=== PATIENT | male | born 1945 | race Caucasian/White ===

== ENCOUNTER → 2023-04-15 | Outpatient (CLI) | payer MEDICARE, BC, SELFPAY ==
[2023-04-15 13:39] LABS: Prothrombin Time (Protime)PT. 13.4 SECONDS (11.7-14.9)
[2023-04-15 13:40] LABS: Partial Thromboplast Time 28.4 Seconds (24.1-36.2)
== END | disposition home or self-care (01) ==
PROVIDERS: PCP Family Medicine; Referring Provider Internal Medicine Critical Care Medicine; Visit Provider Internal Medicine Critical Care Medicine
DX: R91.8 Other nonspecific abnormal finding of lung field (principal)
CPT/HCPCS: 36415; 85610; 85730

== ENCOUNTER → 2023-04-18 | Outpatient (CLI) | payer MEDICARE, BC, SELFPAY ==
--- NOTE | 2023-04-19 05:56 | PFTCOMP_ITS ---
COMPLETE PULMONARY FUNCTION TEST INTERPRETATION Brief HPI: Patient is an 78-year-old male, currently under the care of myself, who presents to [facility] for complete pulmonary function tests secondary to diagnosis of lung mass. Respiratory therapist reports good effort and reproducible results. Interpretation: Forced expiration spirometry shows a mild large airways obstructive ventilatory defect with an FEV1 of 71% predicted. There is a significant bronchodilator response in FVC and FEV1 by strict ATS criteria. Spirograms are of good quality and plateau slowly, indicating slowly emptying areas of the lungs. The respiratory flow volume loop shows flattening of the expiratory limb suggestive of a partial intrathoracic airway obstruction. Lung volumes by body plethysmography show decreased total lung capacity at 3.67 L, 65% predicted. All other lung volumes are reduced symmetrically. Diffusion capacity by carbon monoxide is normal at 94% predicted. The airway resistance is elevated. No previous pulmonary function tests were available for review. Impression: Partially reversible mild mixed ventilatory defect with relatively preserved diffusion capacity and some suggestion of a partial intrathoracic airway obstruction
== END | disposition home or self-care (01) ==
LOC: PSN 09:45
PROVIDERS: PCP Family Medicine; Referring Provider Internal Medicine Critical Care Medicine; Visit Provider Internal Medicine Critical Care Medicine
DX: R91.8 Other nonspecific abnormal finding of lung field (principal)
CPT/HCPCS: 94060; 94726; 94729

== ENCOUNTER 2023-04-19 11:29 | Day surgery (SDC) | payer MEDICARE, BC, SELFPAY ==
[2023-04-19] VITALS (12 sets, daily range): BP systolic 100–138; BP diastolic 46–97; PULSE 84–91; RESP 16–18; TEMP 36.9–37.2; O2SAT 88–98; BMI 25.4
--- NOTE | 2023-04-19 | IMM_PTH ---
PATIENT: GLENYS PORTILLO LOC: EN U#:[id number] AGE/SX: 78/M ROOM: RE04/19/[address]: Dr. Cristian Duenas MD : 1945 BED: DIS: 04/19/2023 SPEC #: [id number] RECD: 04/24/23 13:25 STATUS: TIMO REQ #: [id number] PARISH: 04/19/23 00:[address]: Cristian Duenas DEPT: IMMUNOHISTOCHEMISTRY RECD BY: Chloe Long ENTERED: 04/24/23 13:26 SP TYPE: IMMUNO OTHR DR: Dr. Daniel Orr MD Tissues: Trachea, NOS Procedures: BCL-2 (add) BCL-6 (add) CD10 (add) CD20 (add) CD23 (add) CD3 (add) CD43 (add) CD45 (add) CD5 (add) CD79A (add) CK5-6 (add) CK7 (add) CYCLIN (add) TTF1 (add) MUM1 (add) C-MYC (add) Pankeratin (initial) PHYSICIAN & [address] [address] SPECIMEN INFORMATION: Tissue Source: Trachea mass Clinical Info: Trachea mass Specimen Number: [id number] CPT code: 09201, 79591 x16 METHODOLOGY: Deparaffinized sections of prefer/formalin-fixed tissue or PAP/DQ stained slides are incubated with monoclonal/polyclonal antibodies/oligonucleotide probes. Localization is made via biotin free immunoperoxidase method. Appropriate controls are performed and reacted as expected. Results on target cell population are indicated in the following table: RESULTS: ANTIBODY / CLONE RESULT AE1-3 (AE1/AE3/PCK26) negative CK7 (OV-TL12/30) negative TTF-1 (8G7G3/1) negative CK5-6 (D5 & 1684) negative CD45 (RP2/18) positive CD3 (PS1) negative CD5 (SP10) negative CD20 (L26) negative CD43 (L60) negative CD79a (11E3) negative CD10 (56C6) negative CD23 (1B12) negative BCL-2 (bcl-2/100/D5) negative BCL-6 (JM685U/A8) negative Cyclin D1/BCL-1 (SP4) negative MUM1 (MRQ-43) negative C-MYC (Y69) negative These tests were developed and their performance characteristics determined by [facility]. They may not have been cleared or approved by the U.S. Food and Drug Administration. The FDA has determined that such clearance or approval is not necessary. The above immunohistochemical/dualISH markers are ordered and reviewed by the Pathologist. INTERPRETATION: Trachea, biopsy: Negative for malignancy, lymphoma or plasma cell neoplasm. See comment. SJ:michelle 05/03/2023 The specimen is sent to [facility] for expert opinion, reviewed by Dr. Dena Wang and the above diagnosis is rendered. The complete report is viewable in the patient's EMR. Case has been reviewed in consultation with Dr. Crocker who concurs with the above diagnosis. IDC:AM
--- NOTE | 2023-04-19 | FLU_PTH ---
PATIENT: GLENYS PORTILLO LOC: EN U#:[id number] AGE/SX: 78/M ROOM: RE04/19/[address]: Dr. Cristian Duenas MD : 1945 BED: DIS: 04/19/2023 SPEC #: [id number] RECD: 04/19/23 13:47 STATUS: TIMO GOYAL #: [id number] PARISH: 04/19/23 00:[address]: Cristian Duenas DEPT: CYTOLOGY RECD BY: Suzan Hill ENTERED: 04/23/23 08:17 SP TYPE: Fluid OTHR DR: Dr. Daniel Orr MD Tissues: Bronchus, NOS Procedures: Special Stain Group II Surgery Specimen Level IV Cytospin Fluid HEADER OPERATION: Bronchoscopy PRE-OP DIAGNOSIS: Mass TISSUE SUBMITTED: Trachea washings DIAGNOSIS CYTOLOGY Tracheal washings (cytospin and cell block): Negative for malignant cells. See comment. AM:michelle 04/24/2023 COMMENT The specimen contains mucoid material, acute inflammatory cells, bacterial colonies and rare benign appearing epithelial cells. Clinical correlation is suggested. CYTOLOGY STUDY Slides are reviewed. CYTOLOGY GROSS Received is 15 ml of red cloudy mucoidy fluid labeled with the patient's name and and designated per the requisition as trachea washings. Submitted for cytology preparation including cell block. / rg 04/23/2023 TC:5 CPT: 06156, 04494
--- NOTE | 2023-04-19 | LUNG_PTH ---
PATIENT: GLENYS PORTILLO LOC: EN U#:[id number] AGE/SX: 78/M ROOM: RE04/19/[address]: Dr. Cristian Duenas MD : 1945 BED: DIS: 04/19/2023 SPEC #: [id number] RECD: 04/19/23 13:48 STATUS: TIMO GOYAL #: [id number] PARISH: 04/19/23 00:[address]: Cristian Duenas DEPT: SURGICAL PATHOLOGY RECD BY: Suzan Hill ENTERED: 04/23/23 08:20 SP TYPE: LUNG BX OTHR DR: Dr. Daniel Orr MD Tissues: Lung, NOS Procedures: [facility] Consultation (on slides) Surgery Specimen Level IV HEADER OPERATION: Bronchoscopy PRE-OP DIAGNOSIS: Mass TISSUE SUBMITTED: Trachea MICROSCOPIC DIAGNOSIS Trachea, biopsy: Minute fragments of bronchial mucosa with ulceration, necrosis and granulation tissue. No evidence of lymphoma or plasma cell neoplasm. Negative for tumor. Negative special stains for fungal organisms (GM)S and acid fast bacilli (AFB). See comment. PHYLLIS:michelle 05/03/2023 COMMENT The specimen is sent to [facility] for expert opinion, reviewed by Dr. Dena Wang and the above diagnosis is rendered. Immunohistochemistry ([id number]) and additional stains performed at [facility] support the above diagnosis. The complete report is viewable in the patient's EMR. Correlation with clinical findings and appropriate follow up are necessary. Please correlation with additional cytology specimen [id number]. Case has been reviewed in consultation with Dr. Crocker who concurs with the above diagnosis. IDC:AM MICROSCOPIC DESCRIPTION Slides are reviewed. GROSS DESCRIPTION Received in fixative is one container labeled with the patient's name and designated trachea biopsy. The specimen consists of multiple irregular fragments of light akhtar soft tissue that in aggregate measure 2.0 x 0.5 x 0.1 cm. The specimen is totally submitted in one cassette. / PHYLLIS:michelle 04/23/2023 TC:2 [facility]: [id number]
--- NOTE | 2023-04-19 12:06 | PCM.HP.BLA ---
History and Physical Date of Admission: 04/19/23 Patient seen and examined just prior to the procedure. Patient is accompanied by his and daughter. All questions were answered. There has been no significant change from outpatient visit listed below. Of note, patient did have a pulmonary function test completed on 04/18/2023 showing significant improvement following bronchodilators with a 27% improvement in FEV1 and a 43% improvement in FVC. Patient is agreeable to moving forward with the procedure. Assessment and Plan Assessment and Plan (1) Lung mass: ?Status:?Acute ? ? ? Orders: Orders Bronchoscopy Today R91.8 - Other nonspecific abnormal finding of lung field ? Prothrombin Time w/INR Today R91.8 - Other nonspecific abnormal finding of lung field ? Pulmonary Function Test (Comp) Today R91.8 - Other nonspecific abnormal finding of lung field ? Partial Thromboplast Time Today R91.8 - Other nonspecific abnormal finding of lung field ? Plan Extensive discussion with the patient about the possible implications about the lung mass noted on CT scan of the chest.? Patient does have a lesion on the top of his head that is somewhat concerning for possible melanoma.? Patient is also had a neurogenic bladder.? Patient does have a smoking history and advanced age as risk factors for lung cancer.? Size and characterization of the lung mass is difficult given its proximal location.? After review the risks, benefits and alternatives, patient would like to proceed with an EBUS procedure.? We will obtain a pulmonary function test for quantification clarification of lung function.? Did discuss the possibility of evaluation by dermatology preemptively, but patient will discuss this.? Patient does have a cystoscopy scheduled for tomorrow and was told that this could be continued as this should not interfere with the work-up of the lung mass.? No platelet count is necessary as this was recently done at an outside institution Obtain coagulation studies.? Obtain complete PFT and EBUS procedure Plan Details Additional Comments: 70 minutes was spent reviewing documentation, performing exam, discussing options and coordinating EBUS procedure. Follow Up: ? ? 2 Weeks (CSM) HPI Lung Nodule Details: Patient is an 78-year-old male who presents with his from [place] emergency department secondary to an abnormal CT scan.? Patient had reported having a bronchitis in January.? Patient was placed on a Z-James with no improvement and continued to have some cough with hoarseness.? Patient states that in March he had a chest x-ray and subsequently was asked to have a CT scan of the chest.? This showed a proximal mass obstructing the right upper lobe.? Patient presents for recommendations. Patient does report a [id number]-[id number] smoking history.? Patient also has a history of a neurogenic bladder and has been having recurring UTIs over the last 1 to 2 years.? Patient states that he is planning on having a cystoscopy in the next 1 to 2 days.? Patient does not report any history of prostate cancer.? Patient does not follow with a driver license reviewing officer routinely, but does state that he has had colonoscopies and screening as age-appropriate.? Patient does not have low-dose CT scans.? Patient does state that he has had a raspy voice since his initial bronchitis in early January.? Patient does not report any aspiration or choking events. Patient states that he has worked in [employer] in [employer].? Patient denies any exposure to asbestos or TB.? 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 Patient has used the as needed albuterol inhaler intermittently with mild improvement. Review of systems otherwise negative from a constitutional, HEENT, respiratory, cardiovascular, GI, genitourinary, musculoskeletal, skin, neurologic, psychiatric and hematologic system unless stated above. Documentation reviewed 25 pages of documentation were reviewed prior to the office visit.? Patient does not have any previous pulmonary function tests available.? Patient has been treated with azithromycin and Augmentin per the documentation.? Patient did have laboratory results showing a platelet count of 298 completed on 04/04/2023.? Patient did not have a significant leukocytosis at that time.? Patient's creatinine was 1.15.? All of these records have been scanned into the medical chart. Imaging personally reviewed Chest x-ray and CT scan of the chest was personally reviewed from 04/04/2023 using disc provided by the patient.? Patient has a right hilar mass measuring approximately 4.4 cm with obstruction of the right upper lobe with some right mainstem involvement.? There does appear to be some postobstructive atelectasis.? Mediastinal evaluation does show a slightly enlarged 4R lymph node and significant 7 station lymphadenopathy.? Evaluation of 10 R was difficult on the selected study. Intake Vital Signs ? 04/15/2311:05 Height 5 ft 7 in Weight: 74.389 kg BMI 25.7 BP 129/76 H Blood Pressure Location Lt brachial Position Sitting Respiration 18 Pulse 99 Pulse Source Monitor Temp 36.4 C L Temperature Source Temporal Artery Pulse Oximetry (%) 96 Oxygen Delivery Method room air Intake Visit Reasons:?Lung Nodule Accompanied by: Is patient in pain?: No Allergies ibuprofen [From Motrin] Allergy (Severe, Verified 04/15/23 11:06) Anaphylaxis Medications albuterol sulfate 90 mcg/actuation aerosol inhaler 2 puff inhalation Q6H PRN 04/12/23 [History Confirmed 04/15/23] aspirin 81 mg tablet,delayed release 81 mg PO DAILY 04/12/23 [History Confirmed 04/15/23] gabapentin 300 mg capsule 300 mg PO QHS 04/12/23 [History Confirmed 04/15/23] levothyroxine 150 mcg tablet (Synthroid) 150 mcg PO DAILY 04/12/23 [History Confirmed 04/15/23] lisinopril 10 mg tablet 10 mg PO DAILY 04/12/23 [History Confirmed 04/15/23] potassium gluconate 595 mg (99 mg) tablet 595 mg PO DAILY 04/12/23 [History Confirmed 04/15/23] rosuvastatin 5 mg tablet (Crestor) 2.5 mg PO DAILY 04/12/23 [History Confirmed 04/15/23] verapamil 180 mg 24 hr capsule,extended release 180 mg PO DAILY 04/12/23 [History Confirmed 04/15/23] PFSH Medical History?(Updated 04/15/23 @ 12:[address] Cristian Duenas MD) H/O solitary pulmonary nodule Family History?(Updated 04/15/23 @ 11:11 by Kelli Woodson) Brother Diabetes Heart disease CancerSister Diabetes Breast cancer Social History?(Updated 04/15/23 @ 11:12 by Kelli Woodson) Smoking Status:? Former smoker Tobacco: How many years used:? 20 smoking status stop date:? 11/25/99 Exam Const Constitutional: Positive conversant, cooperative, in no acute respiratory distress, healthy appearing, well developed, well nourished and good hygiene Appears younger than stated age Head Head: Yes normocephalic, Yes atraumatic and No cyanosis of lips/distal nose Eyes Eye: Positive clear conjunctiva; Negative nystagmus, scleral abnormality or cataract present Ears Ear: Positive hearing normal and external ears normal; Negative hard of hearing Nose Nose: Yes external nose normal, No nasal polyp and Yes septum normal Mouth Mouth: Positive oral mucosae normal, no lesions and good dentition; Negative oral thrush present or post nasal drip Mallampati Score: II: Mallampati Score Neck Neck: Positive normal visual inspection, full ROM and trachea midline; Negative lymphadenopathy or JVD Chest Wall Chest: Positive normal inspection of the chest and symmetric chest movement; Negative crepitus or tenderness Resp lung sounds: Positive clear to auscultation, good air exchange, rhonchi (Notable on right, but resolved with coughing) and normal expiratory time; Negative wheezes, wheeze present on forced exhalation, rales, dullness or use of accessory muscles Cardio Cardiac: Positive regular rate, regular rhythm, S1 normal and S2 normal; Negative murmur, rub or gallop GI GI: Positive normal to inspection and normal bowel sounds; Negative distended, ascites or epigastric tenderness Musc Musculoskeletal: Positive steady gait; Negative using an assistive device for ambulation, kyphosis or scoliosis Skin Pulmonary Skin Exam: Positive intact; Negative rash, ulcers or erythema Highly irregular patch approximately 4 cm noted on the left crown of the head.? Irregular pigmentation and borders noted.? No scaling noted. Pulses Pulse: Yes radial pulses present Extremities Extremities: Yes capillary refill normal, No clubbing, No cyanosis and No edema Neuro Neurologic: Yes no focal neuro deficits, Yes conversant, Yes cooperative, Yes normal cognition, Yes normal coordination, Yes normal concentration and Yes understands questions Lymph Lymphatic: No lymphadenopathy Psych Appearance: Positive grossly normal Mental Status: Positive mental status grossly normal Mood: Positive congruent mood Affect: Positive normal affect Assessment & Plan Assessment/Plan (1) Lung mass: PLAN: Plan to move forward with bronchoscopy and EBUS with transbronchial needle biopsy, endobronchial biopsy and Cytobrush evaluation anticipated.
[2023-04-19] MEDS: Ipratropium/Albuterol Sulfate 3 ML AMPUL.NEB INHALATION ×2 (12:16→14:21)
[2023-04-19] MEDS: Lactated Ringers 1,000 ML 15 ML IV ×2 (12:17→13:00)
[2023-04-19] MEDS: Epinephrine (1 mg/ml) 1 MG/ML VIAL (12:55)
[2023-04-19] MEDS: 0.9% Normal Saline (Pres. free 10 ML Vial (12:55)
--- NOTE | 2023-04-19 13:18 | OP.BRONCH_ITS ---
Patient Name: Baltazar Gilmore Procedure Date: 04/19/2023 11:52 AM Date of : 1945 Age: 78 Procedure: Bronchoscopy Indications: Right upper lobe mass Providers: Cristian Duenas MD Medicines: See the Anesthesia note for documentation of the administered medications Complications: No immediate complications. Unable to perform EBUS secondary to endobronchial masses. Procedure: Pre-Anesthesia Assessment: - Prior to the procedure, a History and Physical was performed, and patient medications and allergies were reviewed. The patient's tolerance of previous anesthesia was also reviewed. The risks and benefits of the procedure and the sedation options and risks were discussed with the patient. All questions were answered, and informed consent was obtained. Prior Anticoagulants: The patient has taken no previous anticoagulant or antiplatelet agents. ASA Grade Assessment: III - A patient with severe systemic disease. After reviewing the risks and benefits, the patient was deemed in satisfactory condition to undergo the procedure. After I obtained informed consent, the scope was passed under direct vision. Throughout the procedure, the patient's blood pressure, pulse, and oxygen saturations were monitored continuously. The bronchoscope was introduced through the mouth, via laryngeal mask airway and advanced to the karolina. The procedure was accomplished without difficulty. The patient tolerated the procedure well. The patient tolerated the procedure well. The procedure was accomplished with ease. Findings: Trachea/Karolina Abnormalities: A partially obstructing (about 70% obstructed) mass was found 2 cm from the bifurcation (karolina) in the lower trachea. The mass was medium-sized and fungating, polypoid and smooth. The lesion was successfully traversed, but unable to progress down the bronchial tree secondary to fungating masses. 2 cc of 1-10,000 epinephrine were placed topically prior to any biopsies. Mucopurulent, white secretions were found in the lower trachea. They were partially obstructing the airway. Endobronchial biopsies of a mass were performed in the trachea using a jumbo forceps and sent for histopathology examination. 12 samples were obtained. Washings were obtained in the trachea and sent for routine cytology. The return was bloody. Multiple specimens were obtained and pooled into one specimen, which was sent for analysis. Impression: - Right upper lobe mass - A fungating, polypoid and smooth mass was found in the lower trachea. 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 - Mucopurulent, white secretions were found in the lower trachea. - An endobronchial biopsy was performed. - Washings were obtained. Recommendation: - The patient will be observed post-procedure, until all discharge criteria are met. - Await biopsy and washing results. - Follow up in clinic in one week. Procedure Code(s): --- Professional --- 88366, Bronchoscopy, rigid or flexible, including fluoroscopic guidance, when performed; with bronchial or endobronchial biopsy(s), single or multiple sites Diagnosis Code(s): --- Professional --- R91.8, Other nonspecific abnormal finding of lung field J98.9, Respiratory disorder, unspecified R09.89, Other specified symptoms and signs involving the circulatory and respiratory systems CPT copyright 2017 [employer]. All rights reserved. The codes documented in this report are preliminary and upon executive administrative assistant review may be revised to meet current compliance requirements. MD Cristian Mullen MD 04/19/2023 1:18:25 PM This report has been signed electronically. Number of Addenda: 0 Note Initiated On: 04/19/2023 11:52 AM
[2023-04-19] MEDS: Lidocaine Jelly 2% 20 ML Syringe (URO-JET) 1 APPLIC (13:27)
[2023-04-19 13:42] LABS: Bedside Glucose 103 mg/dL (74-106)
[2023-04-19 13:49] LABS: Bedside Glucose 101 mg/dL (74-106)
[2023-04-19 13:55] LABS: Cytology, Body Fluid / CSF SEE PATHOLOGY REPORT
== END 2023-04-19 15:15 | disposition home or self-care (01) ==
LOC: EN 11:29 → AC 11:31
PROVIDERS: PCP Family Medicine; Referring Provider Internal Medicine Critical Care Medicine; Visit Provider Internal Medicine Critical Care Medicine
PROC: BB4BZZZ Ultrasonography of Pleura (ICD-10-PCS; CPT 31625; principal; 2023-04-19 12:00)
DX: R91.8 Other nonspecific abnormal finding of lung field (principal); E11.9 Type 2 diabetes mellitus without complications; J98.9 Respiratory disorder, unspecified; R09.89 Other specified symptoms and signs involving the circulatory and respiratory systems; I10 Essential (primary) hypertension; E07.9 Disorder of thyroid, unspecified; Z87.891 Personal history of nicotine dependence; Z79.82 Long term (current) use of aspirin; Z79.84 Long term (current) use of oral hypoglycemic drugs; Z79.899 Other long term (current) drug therapy
CPT/HCPCS: 31625; 82962; 88108; 88305; 88313; 88325; 88341; 88342; 94640; J7120; J2405; J3490